=== PATIENT | female | born 1930 | race Caucasian/White ===

== ENCOUNTER 2017-07-26 17:34 | Emergency (ER) | payer MEDICAID ==
[~2017-07-26] VITALS: Ht 144.8 cm; Wt 54.9 kg
[~2017-07-26 17:34] MED LIST: ASPI-COR81 M1 PO; ATORVASTATIN CA40 MG PO; AUGMENTIN1 TA2 PO; CLONAZEPAM0.125 M1 PO; ENALAPRIL10 MG PO; FUROSEMIDE PO; KLO0.5 PO; LISINOPRIL10 MG PO; MASON25 MG PO; METFORMIN500 M1 PO; METFORMIN500 MG PO; METOPROLOL50 MG PO; PLA75; PLA75 PO; RANITIDINE150 M1 PO; RANITIDINE150 MG PO; SIMVASTATIN20 M1 PO; SPIRONOLACTONE25 MG; [UNRECOGNIZED DRUG - OTHER] PO
[2017-07-26 18:00] VITALS: Ht 144.8 cm; Wt 54.9 kg
[2017-07-26 18:28] VITALS: BP 147/79
== END 2017-07-26 18:28 | disposition home or self-care (01) ==
LOC: ED 17:34
DX: S81.801A Unspecified open wound, right lower leg, initial encounter (principal); L08.9 Local infection of the skin and subcutaneous tissue, unspecified; Z88.2 Allergy status to sulfonamides; Z88.8 Allergy status to other drugs, medicaments and biological substances; I10 Essential (primary) hypertension; E11.9 Type 2 diabetes mellitus without complications; I63.9 Cerebral infarction, unspecified; F41.8 Other specified anxiety disorders; Z95.0 Presence of cardiac pacemaker; X58.XXXA Exposure to other specified factors, initial encounter; Y93.89 Activity, other specified; Y92.89 Other specified places as the place of occurrence of the external cause; Y99.8 Other external cause status

== ENCOUNTER 2017-09-16 23:26 | Inpatient (IN) | payer OTHER ==
[~2017-09-16] VITALS: Ht 149.9 cm; Wt 50.3 kg
[~2017-09-16 23:26] MED LIST changes: -ASPI-COR81 M1 PO; +ASPIRIN81 MG PO
[2017-09-17] VITALS (7 sets, daily range): BP systolic 124–176; BP diastolic 43–75; Ht 149.9 cm; Wt 50.3 kg
[2017-09-17 01:10] LABS: BASOPHIL % 0.9 % (0-2); PLATELET COUNT 207 x10^3mcL (130-400); RED CELL DISTRIBUTION WIDTH 15.8 % (11.5-14.5)
[2017-09-17 01:35] LABS: T3 TOTAL 0.75 ng/mL
[2017-09-17 01:38] LABS: ALKALINE PHOSPHATASE 91 U/L (46-116); ALT/SGPT 12 U/L (14-59); AST/SGOT 15 U/L (15-37); BILIRUBIN TOTAL 0.49 mg/dL (0.20-1.00); C REACTIVE PROTEIN 3.9 mg/dL (<=0.9); CALCIUM 7.8 mg/dL (8.5-10.1); CARBON DIOXIDE 32.9 mmol/L (21-32); CHLORIDE SERUM 104 mmol/L (98-107); CREATININE SERUM 0.6 mg/dL (0.6-1.0); GLUCOSE SERUM 113 mg/dL (74-106); SODIUM SERUM 143 mmol/L (136-145)
[2017-09-17 01:42] LABS: ALBUMIN 2.5 g/dL (3.4-5.0); TOTAL PROTEIN, SERUM 5.8 g/dL (6.4-8.2)
[2017-09-17 01:44] LABS: POTASSIUM SERUM 2.8 mmol/L (3.5-5.1)
[2017-09-17 02:00] LABS: CK-MB < 0.5 ng/mL (0-3.6); CREATINE KINASE 34 U/L (26-192); FREE T4 0.9 ng/dL (0.76-1.46); T4(THYROXINE) 6.1 ug/dL (4.7-13.3)
[2017-09-17 02:14] LABS: microscopic required? NO
[2017-09-17 02:15] LABS: ERYTHROCYTE SED RATE 35 mm/hr (0-30)
[2017-09-17 02:20] LABS: urine erythrocyte NEGATIVE (NEGATIVE)
[2017-09-17] MEDS ORDERED: CLONAZEPAM0.5 MG (03:28)
[2017-09-17 08:10] LABS: BASOPHIL % 0.5 % (0-2); PLATELET COUNT 205 x10^3mcL (130-400)
[2017-09-17 08:32] LABS: CALCIUM 7.4 mg/dL (8.5-10.1); CARBON DIOXIDE 30.5 mmol/L (21-32); CHLORIDE SERUM 106 mmol/L (98-107); CREATININE SERUM 0.5 mg/dL (0.6-1.0); GLUCOSE SERUM 117 mg/dL (74-106); POTASSIUM SERUM 3.4 mmol/L (3.5-5.1); SODIUM SERUM 143 mmol/L (136-145)
[2017-09-18 05:46] VITALS: BP 159/65
[2017-09-18 06:21] LABS: BASOPHIL % 0.4 % (0-2); PLATELET COUNT 208 x10^3mcL (130-400)
[2017-09-18 06:45] LABS: ALKALINE PHOSPHATASE 80 U/L (46-116); ALT/SGPT 11 U/L (14-59); AST/SGOT 14 U/L (15-37); BILIRUBIN TOTAL 0.77 mg/dL (0.20-1.00); CALCIUM 7.4 mg/dL (8.5-10.1); CARBON DIOXIDE 26.4 mmol/L (21-32); CHLORIDE SERUM 102 mmol/L (98-107); CREATININE SERUM 0.6 mg/dL (0.6-1.0); GLUCOSE SERUM 140 mg/dL (74-106); MAGNESIUM 1.2 mg/dL (1.8-2.4); SODIUM SERUM 138 mmol/L (136-145)
[2017-09-18 06:53] LABS: POTASSIUM SERUM 2.8 mmol/L (3.5-5.1); RED CELL DISTRIBUTION WIDTH 15.5 % (11.5-14.5); TOTAL PROTEIN, SERUM 5.3 g/dL (6.4-8.2)
[2017-09-18 09:35] VITALS: BP 143/47
[2017-09-18 17:00] VITALS: BP 132/52
[2017-09-18 21:33] VITALS: BP 117/50
[2017-09-19 05:46] VITALS: BP 127/54
[2017-09-19 07:47] LABS: PLATELET COUNT 255 x10^3mcL (130-400)
[2017-09-19 07:51] LABS: RED CELL DISTRIBUTION WIDTH 15.9 % (11.5-14.5)
[2017-09-19 08:02] VITALS: BP 150/63
[2017-09-19 08:50] LABS: ALKALINE PHOSPHATASE 76 U/L (46-116); ALT/SGPT 10 U/L (14-59); AST/SGOT 11 U/L (15-37); BILIRUBIN TOTAL 0.54 mg/dL (0.20-1.00); CALCIUM 7.9 mg/dL (8.5-10.1); CARBON DIOXIDE 25.5 mmol/L (21-32); CHLORIDE SERUM 107 mmol/L (98-107); CREATININE SERUM 0.7 mg/dL (0.6-1.0); GLUCOSE SERUM 122 mg/dL (74-106); MAGNESIUM 1.8 mg/dL (1.8-2.4); POTASSIUM SERUM 5.2 mmol/L (3.5-5.1); SODIUM SERUM 140 mmol/L (136-145)
[2017-09-19 09:04] LABS: ALBUMIN 1.9 g/dL (3.4-5.0); TOTAL PROTEIN, SERUM 5.1 g/dL (6.4-8.2)
[2017-09-19 10:53] LABS: BAND NEUTROPHIL 44 % (0-10); BASOPHIL 0 % (0-2); MONOCYTE 6 % (0-7); SEGMENTED NEUTROPHILS 38 % (37-75); ovalocyte/elliptocyte 1+; rbc morphology (normal/abnorm) ABNORMAL (NORMAL)
[2017-09-19 10:54] LABS: PLATELET MORPHOLOGY GIANT PLATELET SEEN
[2017-09-19 12:17] VITALS: BP 145/61
[2017-09-19 20:06] VITALS: BP 132/54
[2017-09-20 05:46] VITALS: BP 156/48
[2017-09-20 07:14] LABS: PLATELET COUNT 330 x10^3mcL (130-400)
[2017-09-20 07:15] LABS: RED CELL DISTRIBUTION WIDTH 16.2 % (11.5-14.5)
[2017-09-20 08:10] LABS: ALKALINE PHOSPHATASE 81 U/L (46-116); ALT/SGPT 9 U/L (14-59); AST/SGOT 11 U/L (15-37); BILIRUBIN TOTAL 0.35 mg/dL (0.20-1.00); CALCIUM 7.7 mg/dL (8.5-10.1); CARBON DIOXIDE 24.5 mmol/L (21-32); CHLORIDE SERUM 104 mmol/L (98-107); CREATININE SERUM 0.6 mg/dL (0.6-1.0); GLUCOSE SERUM 117 mg/dL (74-106); MAGNESIUM 1.6 mg/dL (1.8-2.4); POTASSIUM SERUM 4.1 mmol/L (3.5-5.1); SODIUM SERUM 136 mmol/L (136-145)
[2017-09-20 08:14] LABS: BAND NEUTROPHIL 11 % (0-10); MONOCYTE 4 % (0-7); SEGMENTED NEUTROPHILS 80 % (37-75)
[2017-09-20 08:15] LABS: ALBUMIN 1.9 g/dL (3.4-5.0); TOTAL PROTEIN, SERUM 5.3 g/dL (6.4-8.2); rbc morphology (normal/abnorm) NORMAL (NORMAL)
[2017-09-20 08:21] VITALS: BP 144/64
[2017-09-20 12:01] VITALS: BP 150/72
[2017-09-20 16:59] VITALS: BP 153/62
[2017-09-20 21:30] VITALS: BP 172/70
[2017-09-20 23:04] VITALS: BP 172/72
[2017-09-21 05:58] VITALS: BP 161/60
[2017-09-21 08:10] LABS: BASOPHIL % 0.2 % (0-2); PLATELET COUNT 327 x10^3mcL (130-400)
[2017-09-21 08:12] LABS: RED CELL DISTRIBUTION WIDTH 16.3 % (11.5-14.5)
[2017-09-21 08:31] LABS: ALBUMIN 1.7 g/dL (3.4-5.0); ALKALINE PHOSPHATASE 85 U/L (46-116); ALT/SGPT 14 U/L (14-59); AST/SGOT 25 U/L (15-37); CALCIUM 7.2 mg/dL (8.5-10.1); CARBON DIOXIDE 26.7 mmol/L (21-32); CHLORIDE SERUM 101 mmol/L (98-107); CREATININE SERUM 0.5 mg/dL (0.6-1.0); GLUCOSE SERUM 106 mg/dL (74-106); MAGNESIUM 1.4 mg/dL (1.8-2.4); POTASSIUM SERUM 3.8 mmol/L (3.5-5.1); SODIUM SERUM 135 mmol/L (136-145); TOTAL PROTEIN, SERUM 4.7 g/dL (6.4-8.2)
[2017-09-21 09:55] VITALS: BP 167/73
[2017-09-21 17:17] VITALS: BP 171/73
[2017-09-21 17:43] VITALS: BP 171/75
[2017-09-21 18:43] VITALS: BP 134/69
[2017-09-21 20:59] VITALS: BP 136/58
[2017-09-22 05:46] VITALS: BP 136/58
[2017-09-22 09:29] VITALS: BP 139/59
[2017-09-22 17:10] VITALS: BP 176/72
[2017-09-22 18:22] VITALS: BP 128/57
[2017-09-22 20:07] VITALS: BP 142/61
[2017-09-23 05:00] VITALS: BP 139/60
[2017-09-23 08:15] LABS: BASOPHIL % 0.1 % (0-2); PLATELET COUNT 351 x10^3mcL (130-400)
[2017-09-23 08:18] LABS: CALCIUM 7.2 mg/dL (8.5-10.1); CARBON DIOXIDE 28.7 mmol/L (21-32); CHLORIDE SERUM 103 mmol/L (98-107); CREATININE SERUM 0.4 mg/dL (0.6-1.0); GLUCOSE SERUM 85 mg/dL (74-106); POTASSIUM SERUM 3.5 mmol/L (3.5-5.1); SODIUM SERUM 137 mmol/L (136-145)
[2017-09-23 08:27] LABS: RED CELL DISTRIBUTION WIDTH 16.2 % (11.5-14.5)
[2017-09-23 08:47] VITALS: BP 153/66
[2017-09-23 16:57] VITALS: BP 162/70
[2017-09-23 18:46] VITALS: BP 112/65
[2017-09-23 20:35] VITALS: BP 132/57
[2017-09-24 05:11] VITALS: BP 157/68
[2017-09-24 09:59] VITALS: BP 154/62
[2017-09-24] MEDS ORDERED: LISINOPRIL10 MG PO (10:29)
[2017-09-24] MEDS ORDERED: VANCOCIN125 MG PO (10:30)
[2017-09-24 14:04] VITALS: BP 154/62
== END 2017-09-24 15:18 | disposition home health service (06) | DRG 248 ==
LOC: ED 23:26 → MU 09-17 02:00
PROVIDERS: Internal Medicine Pulmonary Disease; Specialist
DX: A04.72 Enterocolitis due to Clostridium difficile, not specified as recurrent (principal); E83.42 Hypomagnesemia; E86.0 Dehydration; E87.6 Hypokalemia; Z88.2 Allergy status to sulfonamides; Z88.8 Allergy status to other drugs, medicaments and biological substances; Z90.49 Acquired absence of other specified parts of digestive tract; Z86.73 Personal history of transient ischemic attack (TIA), and cerebral infarction without residual deficits; Z95.0 Presence of cardiac pacemaker; Z80.0 Family history of malignant neoplasm of digestive organs; Z82.49 Family history of ischemic heart disease and other diseases of the circulatory system
CPT/HCPCS: 82962; 83880; 84439; 87046; 87046-59; 97110-GP; 97116-GP; 97530-GP; J0744; J3475; J3480; J3490; J7030; Q0092; Q0162

== ENCOUNTER 2017-10-11 14:13 | Inpatient (IN) | payer OTHER ==
[~2017-10-11] VITALS: Ht 149.9 cm; Wt 48.3 kg
[~2017-10-11 14:13] MED LIST changes: +CLONAZEPAM0.5 MG; +VANCOCIN125 MG PO
[2017-10-11 14:36] VITALS: Ht 149.9 cm; Wt 48.3 kg
[2017-10-11 17:38] LABS: BASOPHIL % 1.4 % (0-2); PLATELET COUNT 284 x10^3mcL (130-400)
[2017-10-11 17:59] LABS: ALBUMIN 2.8 g/dL (3.4-5.0); ALKALINE PHOSPHATASE 77 U/L (46-116); ALT/SGPT 13 U/L (14-59); AST/SGOT 16 U/L (15-37); BILIRUBIN TOTAL 0.5 mg/dL (0.20-1.00); CALCIUM 8.2 mg/dL (8.5-10.1); CARBON DIOXIDE 31.5 mmol/L (21-32); CHLORIDE SERUM 101 mmol/L (98-107); CREATININE SERUM 0.5 mg/dL (0.6-1.0); FREE T4 0.96 ng/dL (0.76-1.46); GLUCOSE SERUM 113 mg/dL (74-106); LIPASE 238 IU/L (73-393); SODIUM SERUM 142 mmol/L (136-145); TOTAL PROTEIN, SERUM 6.7 g/dL (6.4-8.2)
[2017-10-11 18:00] LABS: POTASSIUM SERUM 2.5 mmol/L (3.5-5.1)
[2017-10-11 22:03] VITALS: BP 170/83
[2017-10-12 05:49] LABS: ALBUMIN 2.3 g/dL (3.4-5.0); ALKALINE PHOSPHATASE 68 U/L (46-116); ALT/SGPT 12 U/L (14-59); AST/SGOT 17 U/L (15-37); BILIRUBIN TOTAL 0.5 mg/dL (0.20-1.00); CALCIUM 7.8 mg/dL (8.5-10.1); CARBON DIOXIDE 28.3 mmol/L (21-32); CHLORIDE SERUM 102 mmol/L (98-107); CREATININE SERUM 0.5 mg/dL (0.6-1.0); GLUCOSE SERUM 106 mg/dL (74-106); MAGNESIUM 1.8 mg/dL (1.8-2.4); PHOSPHOROUS 2.7 mg/dL (2.5-4.9); POTASSIUM SERUM 4.2 mmol/L (3.5-5.1); SODIUM SERUM 138 mmol/L (136-145); TOTAL PROTEIN, SERUM 5.9 g/dL (6.4-8.2)
[2017-10-12 05:56] VITALS: BP 135/69
[2017-10-12 06:24] LABS: BASOPHIL % 0.2 % (0-2); PLATELET COUNT 261 x10^3mcL (130-400)
[2017-10-12 06:33] LABS: RED CELL DISTRIBUTION WIDTH 18.5 % (11.5-14.5)
[2017-10-12 08:41] VITALS: BP 150/64
[2017-10-12 12:28] VITALS: BP 172/70
[2017-10-12 16:35] VITALS: BP 163/70
[2017-10-12 20:20] VITALS: BP 146/62
[2017-10-13 05:45] VITALS: BP 136/66
[2017-10-13 08:33] VITALS: BP 142/63
[2017-10-13 12:35] VITALS: BP 158/64
[2017-10-13] MEDS ORDERED: NATURAL IRON65 MG PO (15:07)
[2017-10-13] MEDS ORDERED: NATURE'S BLEND F1 MG PO (15:07)
[2017-10-13] MEDS ORDERED: COLACE100 MG PO (15:08)
[2017-10-13 15:09] VITALS: BP 158/64
== END 2017-10-13 16:09 | disposition home or self-care (01) | DRG 248 ==
LOC: ED 14:13 → DU 20:01
PROVIDERS: Emergency Medicine; Internal Medicine Pulmonary Disease
DX: A04.72 Enterocolitis due to Clostridium difficile, not specified as recurrent (principal); E88.09 Other disorders of plasma-protein metabolism, not elsewhere classified; E11.9 Type 2 diabetes mellitus without complications; E73.9 Lactose intolerance, unspecified; E87.6 Hypokalemia; I25.10 Atherosclerotic heart disease of native coronary artery without angina pectoris; I10 Essential (primary) hypertension; F41.9 Anxiety disorder, unspecified; Z95.0 Presence of cardiac pacemaker; Z79.82 Long term (current) use of aspirin; Z68.21 Body mass index [BMI] 21.0-21.9, adult; Z79.84 Long term (current) use of oral hypoglycemic drugs; Z88.2 Allergy status to sulfonamides; Z86.73 Personal history of transient ischemic attack (TIA), and cerebral infarction without residual deficits; Z82.49 Family history of ischemic heart disease and other diseases of the circulatory system; Z80.0 Family history of malignant neoplasm of digestive organs; Z80.3 Family history of malignant neoplasm of breast; Z80.9 Family history of malignant neoplasm, unspecified; Z90.710 Acquired absence of both cervix and uterus
CPT/HCPCS: 82962; 83880; 84439; J1644; J3475; J3480; J7030; J7040; J7050

== ENCOUNTER 2017-10-23 12:18 | Inpatient (IN) | payer OTHER ==
[~2017-10-23] VITALS: Ht 149.9 cm; Wt 52.2 kg
[~2017-10-23 12:18] MED LIST changes: +COLACE100 MG PO; +NATURAL IRON65 MG PO; +NATURE'S BLEND F1 MG PO
[2017-10-23 12:24] VITALS: Ht 149.9 cm; Wt 52.2 kg
[2017-10-23 15:42] LABS: PLATELET COUNT 219 x10^3mcL (130-400)
[2017-10-23 15:49] LABS: RED CELL DISTRIBUTION WIDTH 18.3 % (11.5-14.5)
[2017-10-23 16:02] LABS: ALKALINE PHOSPHATASE 419 U/L (46-116); ALT/SGPT 136 U/L (14-59); AST/SGOT 283 U/L (15-37); BILIRUBIN TOTAL 2.8 mg/dL (0.20-1.00); CALCIUM 7.3 mg/dL (8.5-10.1); CARBON DIOXIDE 28.4 mmol/L (21-32); CHLORIDE SERUM 105 mmol/L (98-107); CREATININE SERUM 0.5 mg/dL (0.6-1.0); GLUCOSE SERUM 120 mg/dL (74-106); SODIUM SERUM 139 mmol/L (136-145)
[2017-10-23 16:03] LABS: BAND NEUTROPHIL 2 % (0-10); BASOPHIL 0 % (0-2); MONOCYTE 1 % (0-7); SEGMENTED NEUTROPHILS 95 % (37-75)
[2017-10-23 16:04] LABS: rbc morphology (normal/abnorm) NORMAL (NORMAL)
[2017-10-23 16:05] LABS: ALBUMIN 2.1 g/dL (3.4-5.0); TOTAL PROTEIN, SERUM 5.6 g/dL (6.4-8.2)
[2017-10-23 16:06] LABS: POTASSIUM SERUM 2.7 mmol/L (3.5-5.1)
[2017-10-23] MEDS ORDERED: ARICEPT5 MG PO (16:42)
[2017-10-23 16:49] LABS: microscopic required? YES; urine erythrocyte NEGATIVE (NEGATIVE)
[2017-10-23 18:46] VITALS: BP 148/64
[2017-10-23 20:49] VITALS: BP 133/57
[2017-10-24 05:35] VITALS: BP 135/50
[2017-10-24 06:56] LABS: ALKALINE PHOSPHATASE 417 U/L (46-116); ALT/SGPT 109 U/L (14-59); AST/SGOT 193 U/L (15-37); BILIRUBIN TOTAL 1.84 mg/dL (0.20-1.00); CALCIUM 7.7 mg/dL (8.5-10.1); CARBON DIOXIDE 29.5 mmol/L (21-32); CHLORIDE SERUM 106 mmol/L (98-107); GLUCOSE SERUM 80 mg/dL (74-106); POTASSIUM SERUM 3.3 mmol/L (3.5-5.1); SODIUM SERUM 139 mmol/L (136-145)
[2017-10-24 06:57] LABS: PLATELET COUNT 198 x10^3mcL (130-400)
[2017-10-24 06:58] LABS: RED CELL DISTRIBUTION WIDTH 18.8 % (11.5-14.5)
[2017-10-24 07:06] LABS: ALBUMIN 1.9 g/dL (3.4-5.0); CREATININE SERUM 0.6 mg/dL (0.6-1.0); TOTAL PROTEIN, SERUM 5.5 g/dL (6.4-8.2)
[2017-10-24 10:09] LABS: BAND NEUTROPHIL 2 % (0-10); BASOPHIL 0 % (0-2); MONOCYTE 1 % (0-7); SEGMENTED NEUTROPHILS 96 % (37-75)
[2017-10-24 10:10] LABS: PLATELET MORPHOLOGY PLATELETS DECREASED; rbc morphology (normal/abnorm) NORMAL (NORMAL)
[2017-10-24 17:25] VITALS: BP 135/63
[2017-10-24 20:51] VITALS: BP 154/69
[2017-10-25 05:19] VITALS: BP 138/60
[2017-10-25 06:47] LABS: BASOPHIL % 0.2 % (0-2); PLATELET COUNT 179 x10^3mcL (130-400)
[2017-10-25 06:48] LABS: RED CELL DISTRIBUTION WIDTH 19.4 % (11.5-14.5)
[2017-10-25 07:02] LABS: ALKALINE PHOSPHATASE 371 U/L (46-116); ALT/SGPT 76 U/L (14-59); AST/SGOT 81 U/L (15-37); BILIRUBIN TOTAL 0.64 mg/dL (0.20-1.00); CALCIUM 7.5 mg/dL (8.5-10.1); CARBON DIOXIDE 23.8 mmol/L (21-32); CHLORIDE SERUM 108 mmol/L (98-107); CREATININE SERUM 0.6 mg/dL (0.6-1.0); GLUCOSE SERUM 111 mg/dL (74-106); MAGNESIUM 1.3 mg/dL (1.8-2.4); POTASSIUM SERUM 3.4 mmol/L (3.5-5.1); SODIUM SERUM 140 mmol/L (136-145)
[2017-10-25 07:06] LABS: ALBUMIN 1.8 g/dL (3.4-5.0); TOTAL PROTEIN, SERUM 5.4 g/dL (6.4-8.2)
[2017-10-25 09:24] VITALS: BP 165/71
[2017-10-25 15:28] VITALS: BP 148/60
[2017-10-25 15:45] VITALS: BP 148/60
[2017-10-25] MEDS ORDERED: VANCOCIN125 MG PO (15:47)
== END 2017-10-25 17:07 | disposition home or self-care (01) | DRG 720 ==
LOC: ED 12:18 → MU 16:43
PROVIDERS: Emergency Medicine; Internal Medicine Pulmonary Disease
DX: A41.9 Sepsis, unspecified organism (principal); E43 Unspecified severe protein-calorie malnutrition; A04.71 Enterocolitis due to Clostridium difficile, recurrent; E11.9 Type 2 diabetes mellitus without complications; R65.20 Severe sepsis without septic shock; E87.6 Hypokalemia; F41.9 Anxiety disorder, unspecified; F03.90 Unspecified dementia, unspecified severity, without behavioral disturbance, psychotic disturbance, mood disturbance, and anxiety; I25.10 Atherosclerotic heart disease of native coronary artery without angina pectoris; R74.0 Nonspecific elevation of levels of transaminase and lactic acid dehydrogenase [LDH]; I10 Essential (primary) hypertension; Z95.0 Presence of cardiac pacemaker; Z86.73 Personal history of transient ischemic attack (TIA), and cerebral infarction without residual deficits; Z90.710 Acquired absence of both cervix and uterus; Z88.2 Allergy status to sulfonamides
CPT/HCPCS: 82962; 97110-GP; 97116-GP; 97530-GP; J1885; J1956; J3480; J7030; Q0092

== ENCOUNTER 2017-11-13 18:51 | Inpatient (IN) | payer OTHER ==
[~2017-11-13] VITALS: Ht 147.3 cm; Wt 48.1 kg
[~2017-11-13 18:51] MED LIST changes: +ARICEPT5 MG PO
[2017-11-13 19:02] VITALS: Ht 147.3 cm; Wt 48.1 kg
[2017-11-13 20:50] LABS: PLATELET COUNT 376 x10^3mcL (130-400)
[2017-11-13 20:54] LABS: RED CELL DISTRIBUTION WIDTH 18.9 % (11.5-14.5)
[2017-11-13 20:59] LABS: CALCIUM 8.6 mg/dL (8.5-10.1); CARBON DIOXIDE 30.8 mmol/L (21-32); CHLORIDE SERUM 101 mmol/L (98-107); GLUCOSE SERUM 125 mg/dL (74-106); POTASSIUM SERUM 3.2 mmol/L (3.5-5.1); SODIUM SERUM 143 mmol/L (136-145)
[2017-11-13 21:04] LABS: BAND NEUTROPHIL 2 % (0-10); BASOPHIL 0 % (0-2); MONOCYTE 3 % (0-7); SEGMENTED NEUTROPHILS 87 % (37-75)
[2017-11-13 21:05] LABS: rbc morphology (normal/abnorm) NORMAL (NORMAL)
[2017-11-13 21:08] LABS: UA SPECIFIC GRAVITY >=1.030 (1.005-1.035); microscopic required? YES; urine erythrocyte NEGATIVE (NEGATIVE)
[2017-11-13 21:10] LABS: ALBUMIN 2.2 g/dL (3.4-5.0); ALT/SGPT 62 U/L (14-59); AST/SGOT 133 U/L (15-37); BILIRUBIN TOTAL 2.51 mg/dL (0.20-1.00); T4(THYROXINE) 6.2 ug/dL (4.7-13.3); TOTAL PROTEIN, SERUM 7.1 g/dL (6.4-8.2)
[2017-11-13 21:32] LABS: ALKALINE PHOSPHATASE 1321 U/L (46-116)
[2017-11-13] MEDS ORDERED: RANITIDINE H15 MG/ML (21:55)
[2017-11-13 23:30] VITALS: BP 121/59
[2017-11-14 05:24] VITALS: BP 120/52
[2017-11-14 06:14] LABS: PLATELET COUNT 305 x10^3mcL (130-400)
[2017-11-14 06:37] LABS: ALKALINE PHOSPHATASE 994 U/L (46-116); ALT/SGPT 53 U/L (14-59); AST/SGOT 80 U/L (15-37); BILIRUBIN TOTAL 0.94 mg/dL (0.20-1.00); CALCIUM 7.6 mg/dL (8.5-10.1); CARBON DIOXIDE 23.8 mmol/L (21-32); CHLORIDE SERUM 106 mmol/L (98-107); CREATININE SERUM 0.7 mg/dL (0.6-1.0); GLUCOSE SERUM 100 mg/dL (74-106); LIPASE 171 IU/L (73-393); POTASSIUM SERUM 3.5 mmol/L (3.5-5.1); SODIUM SERUM 141 mmol/L (136-145)
[2017-11-14 06:38] LABS: ALBUMIN 1.7 g/dL (3.4-5.0); RED CELL DISTRIBUTION WIDTH 18.9 % (11.5-14.5); TOTAL PROTEIN, SERUM 5.7 g/dL (6.4-8.2)
[2017-11-14 08:54] VITALS: BP 134/55
[2017-11-14 10:36] LABS: BAND NEUTROPHIL 10 % (0-10); BASOPHIL 0 % (0-2); MONOCYTE 3 % (0-7); SEGMENTED NEUTROPHILS 85 % (37-75)
[2017-11-14 10:37] LABS: rbc morphology (normal/abnorm) ABNORMAL (NORMAL)
[2017-11-14 12:04] VITALS: BP 116/50
[2017-11-14 12:36] VITALS: BP 108/41
[2017-11-14 17:01] VITALS: BP 125/58
[2017-11-14 21:06] VITALS: BP 128/58
[2017-11-15 06:00] VITALS: BP 145/65
[2017-11-15 06:36] LABS: ALKALINE PHOSPHATASE 762 U/L (46-116); ALT/SGPT 37 U/L (14-59); AST/SGOT 33 U/L (15-37); BILIRUBIN TOTAL 0.5 mg/dL (0.20-1.00); CALCIUM 7.9 mg/dL (8.5-10.1); CARBON DIOXIDE 31.2 mmol/L (21-32); CHLORIDE SERUM 106 mmol/L (98-107); CREATININE SERUM 0.5 mg/dL (0.6-1.0); GLUCOSE SERUM 85 mg/dL (74-106); POTASSIUM SERUM 3.4 mmol/L (3.5-5.1); SODIUM SERUM 140 mmol/L (136-145)
[2017-11-15 06:39] LABS: BASOPHIL % 0.7 % (0-2); PLATELET COUNT 300 x10^3mcL (130-400)
[2017-11-15 06:40] LABS: RED CELL DISTRIBUTION WIDTH 18.7 % (11.5-14.5)
[2017-11-15 06:54] LABS: ALBUMIN 1.5 g/dL (3.4-5.0); TOTAL PROTEIN, SERUM 5.5 g/dL (6.4-8.2)
[2017-11-15 09:11] VITALS: BP 145/54
[2017-11-15 12:44] VITALS: BP 161/72
[2017-11-15 16:18] VITALS: BP 143/77
[2017-11-15 19:40] VITALS: BP 156/68
[2017-11-16] VITALS (8 sets, daily range): BP systolic 149–173; BP diastolic 69–83
[2017-11-16 06:22] LABS: ALKALINE PHOSPHATASE 730 U/L (46-116); ALT/SGPT 36 U/L (14-59); AST/SGOT 30 U/L (15-37); BILIRUBIN DIRECT 0.44 mg/dL (0.0-0.2); BILIRUBIN TOTAL 0.59 mg/dL (0.20-1.00); CALCIUM 8.4 mg/dL (8.5-10.1); CARBON DIOXIDE 29.7 mmol/L (21-32); CHLORIDE SERUM 107 mmol/L (98-107); CREATININE SERUM 0.6 mg/dL (0.6-1.0); GLUCOSE SERUM 88 mg/dL (74-106); POTASSIUM SERUM 3.1 mmol/L (3.5-5.1); SODIUM SERUM 143 mmol/L (136-145)
[2017-11-16 06:24] LABS: ALBUMIN 1.8 g/dL (3.4-5.0); TOTAL PROTEIN, SERUM 6.1 g/dL (6.4-8.2)
[2017-11-16 06:39] LABS: BASOPHIL % 0.2 % (0-2); PLATELET COUNT 323 x10^3mcL (130-400)
[2017-11-16 07:01] LABS: RED CELL DISTRIBUTION WIDTH 19.1 % (11.5-14.5)
[2017-11-16] MEDS ORDERED: INVANZ1 GM IV (14:26)
[2017-11-17] VITALS (7 sets, daily range): BP systolic 107–172; BP diastolic 45–74
== END 2017-11-17 20:18 | DRG 720 ==
LOC: ED 18:51 → DU 22:04
PROVIDERS: Emergency Medicine; Internal Medicine; Internal Medicine Pulmonary Disease
PROC: 0FC98ZZ Extirpation of Matter from Common Bile Duct, Via Natural or Artificial Opening Endoscopic (ICD-10-PCS; 2017-11-14)
PROC: 0F7C8ZZ Dilation of Ampulla of Vater, Via Natural or Artificial Opening Endoscopic (ICD-10-PCS; 2017-11-14)
PROC: BF101ZZ Fluoroscopy of Bile Ducts using Low Osmolar Contrast (ICD-10-PCS; 2017-11-14)
PROC: 0F7D8ZZ Dilation of Pancreatic Duct, Via Natural or Artificial Opening Endoscopic (ICD-10-PCS; 2017-11-14)
PROC: 0FPD8DZ Removal of Intraluminal Device from Pancreatic Duct, Via Natural or Artificial Opening Endoscopic (ICD-10-PCS; principal; 2017-11-14 09:30)
PROC: 0F798ZZ Dilation of Common Bile Duct, Via Natural or Artificial Opening Endoscopic (ICD-10-PCS; 2017-11-14 09:30)
DX: A41.50 Gram-negative sepsis, unspecified (principal); E43 Unspecified severe protein-calorie malnutrition; D64.9 Anemia, unspecified; E11.9 Type 2 diabetes mellitus without complications; G30.9 Alzheimer's disease, unspecified; I45.2 Bifascicular block; K80.30 Calculus of bile duct with cholangitis, unspecified, without obstruction; F02.80 Dementia in other diseases classified elsewhere, unspecified severity, without behavioral disturbance, psychotic disturbance, mood disturbance, and anxiety; F41.9 Anxiety disorder, unspecified; I10 Essential (primary) hypertension; Z95.0 Presence of cardiac pacemaker; Z86.73 Personal history of transient ischemic attack (TIA), and cerebral infarction without residual deficits; I25.10 Atherosclerotic heart disease of native coronary artery without angina pectoris; Z88.2 Allergy status to sulfonamides; Z88.8 Allergy status to other drugs, medicaments and biological substances; Z90.710 Acquired absence of both cervix and uterus; Z90.49 Acquired absence of other specified parts of digestive tract
CPT/HCPCS: 43260; 82962; 97110-GP; 97116-GP; 97530-GP; C1727; C1769; J1335; J1610; J1956; J2543; J3480; J3490; J7030; J7040; J7050; Q0092; Q9967

== ENCOUNTER 2017-12-23 12:56 | Emergency (ER) | payer OTHER ==
[~2017-12-23] VITALS: Ht 152.4 cm; Wt 44.5 kg
[~2017-12-23 12:56] MED LIST changes: +INVANZ1 GM IV; +RANITIDINE H15 MG/ML
[2017-12-23 13:01] VITALS: Ht 152.4 cm; Wt 44.5 kg
[2017-12-23 16:40] VITALS: BP 182/81
== END 2017-12-23 16:40 | disposition home or self-care (01) ==
LOC: ED 12:56
DX: S22.41XA Multiple fractures of ribs, right side, initial encounter for closed fracture (principal); I10 Essential (primary) hypertension; F03.90 Unspecified dementia, unspecified severity, without behavioral disturbance, psychotic disturbance, mood disturbance, and anxiety; F41.9 Anxiety disorder, unspecified; Z86.73 Personal history of transient ischemic attack (TIA), and cerebral infarction without residual deficits; Z88.2 Allergy status to sulfonamides; Z95.0 Presence of cardiac pacemaker; Z88.1 Allergy status to other antibiotic agents; W18.11XA Fall from or off toilet without subsequent striking against object, initial encounter; Y93.89 Activity, other specified; Y92.89 Other specified places as the place of occurrence of the external cause; Y99.8 Other external cause status

== ENCOUNTER 2018-02-12 12:39 | Emergency (ER) | payer OTHER ==
[~2018-02-12] VITALS: Ht 149.9 cm; Wt 44.5 kg
[2018-02-12 13:07] VITALS: Ht 149.9 cm; Wt 44.5 kg
[2018-02-12 16:19] LABS: BASOPHIL % 0.4 % (0-2); PLATELET COUNT 263 x10^3mcL (130-400)
[2018-02-12 16:20] LABS: RED CELL DISTRIBUTION WIDTH 16.8 % (11.5-14.5)
[2018-02-12 16:28] LABS: CALCIUM 8.6 mg/dL (8.5-10.1); CHLORIDE SERUM 103 mmol/L (98-107); CREATININE SERUM 0.6 mg/dL (0.6-1.0); GLUCOSE SERUM 100 mg/dL (74-106); POTASSIUM SERUM 4.4 mmol/L (3.5-5.1); SODIUM SERUM 142 mmol/L (136-145)
[2018-02-12 16:35] LABS: ALBUMIN 3.7 g/dL (3.4-5.0); ALKALINE PHOSPHATASE 112 U/L (46-116); ALT/SGPT 13 U/L (14-59); AST/SGOT 15 U/L (15-37); BILIRUBIN TOTAL 0.28 mg/dL (0.20-1.00)
[2018-02-12 18:00] VITALS: BP 171/82
== END 2018-02-12 18:00 | disposition home or self-care (01) ==
LOC: ED 12:39
PROVIDERS: Emergency Medicine
DX: R06.00 Dyspnea, unspecified (principal); R53.1 Weakness; G47.00 Insomnia, unspecified; I10 Essential (primary) hypertension; E11.9 Type 2 diabetes mellitus without complications; F41.9 Anxiety disorder, unspecified; Z88.2 Allergy status to sulfonamides; Z86.73 Personal history of transient ischemic attack (TIA), and cerebral infarction without residual deficits
CPT/HCPCS: 36415; 83880; 85378; Q0092

== ENCOUNTER 2019-06-22 14:29 | Observation (INO) | payer OTHER ==
[~2019-06-22] VITALS: Ht 144.8 cm; Wt 46.4 kg
[~2019-06-22 14:29] MED LIST changes: +ASPIRIN CHILDRE81 MG; -ASPIRIN81 MG PO
[2019-06-22 14:33] VITALS: Ht 144.8 cm; Wt 46.4 kg
[2019-06-22 16:47] LABS: ALKALINE PHOSPHATASE 63 U/L (46-116); ALT/SGPT 23 U/L (14-59); AST/SGOT 30 U/L (15-37); BILIRUBIN TOTAL 0.5 mg/dL (0.20-1.00); CALCIUM 8.8 mg/dL (8.5-10.1); CARBON DIOXIDE 27.3 mmol/L (21-32); CHLORIDE SERUM 95 mmol/L (98-107); CREATININE SERUM 0.8 mg/dL (0.6-1.0); GLUCOSE SERUM 89 mg/dL (74-106); LIPASE 211 IU/L (73-393); POTASSIUM SERUM 3.8 mmol/L (3.5-5.1); SODIUM SERUM 133 mmol/L (136-145); TOTAL PROTEIN, SERUM 6.4 g/dL (6.4-8.2)
[2019-06-22 16:49] LABS: ALBUMIN 3.2 g/dL (3.4-5.0); PLATELET COUNT 221 x10^3mcL (130-400); RED CELL DISTRIBUTION WIDTH 14.7 % (11.5-14.5)
[2019-06-22 17:03] LABS: BAND NEUTROPHIL 0 % (0-10); BASOPHIL 0 % (0-2); MONOCYTE 4 % (0-7); SEGMENTED NEUTROPHILS 45 % (37-75)
[2019-06-22 17:04] LABS: PLATELET MORPHOLOGY PLATELETS NORMAL; rbc morphology (normal/abnorm) NORMAL (NORMAL)
[2019-06-22 19:10] VITALS: BP 122/59
[2019-06-22 20:30] VITALS: BP 131/57
[2019-06-22] MEDS ORDERED: LIPITOR20 MG PO (22:08)
[2019-06-22] MEDS ORDERED: MICROZIDE12.5 MG PO (22:08)
[2019-06-22] MEDS ORDERED: TRAZODONE150 M1 PO (22:09)
[2019-06-22 23:41] LABS: CK-MB < 0.5 ng/mL (0-3.6); CREATINE KINASE 315 U/L (26-192)
[2019-06-23 07:38] LABS: CK-MB 1.4 ng/mL (0-3.6)
[2019-06-23 08:38] VITALS: BP 104/49
[2019-06-23 11:47] VITALS: BP 121/70
[2019-06-23 14:18] VITALS: BP 121/70
== END 2019-06-23 15:36 | disposition home or self-care (01) ==
LOC: ED 14:29 → DU 17:46
PROVIDERS: Emergency Medicine; ADMIT Internal Medicine
DX: R07.2 Precordial pain (principal); I10 Essential (primary) hypertension; E11.9 Type 2 diabetes mellitus without complications; F03.90 Unspecified dementia, unspecified severity, without behavioral disturbance, psychotic disturbance, mood disturbance, and anxiety; F41.9 Anxiety disorder, unspecified; Z86.73 Personal history of transient ischemic attack (TIA), and cerebral infarction without residual deficits
CPT/HCPCS: 82962; 83880; G0378; J2405; J3010; J7030; Q0092